=== PATIENT | male | born 1950 | race Caucasian/White ===

== ENCOUNTER 2019-07-05 14:57 | Emergency (ER) | payer MEDICARE ==
--- OUTSIDE RECORDS SUMMARY | 2019-07-05 15:08 | XMS REPORT | Continuity of Care Document ---
:1950 External Reference #:[id number] Author Name Kimberly Sales Address [address] [place] [address] Care Team Providers Name Role Phone Chilango Tobias MD - Interventional Care Team Information [facility] Pain Medicine Mellisa Rodríguez MD - Care Team Information Vertical [facility]orer [phone] Endocrinology, Diabetes & Metabolism Winsome Anderson MD - Cardiovascular Care Team Information [facility]orer Disease Problems Active Problems Provider Date Essential hypertension Kimberly Sales Onset: 03/31/2013 Social History Type Date Description Comments Sex Unknown ETOH Use Occasionally consumes alcohol Recreational Drug Use Denies Drug Use Tobacco Use Start: Unknown End: Patient is a former Unknown smoker Tobacco Use Start: Unknown Patient is a current HE USES THE smoker, smokes every day E-CIGARETTE Smoking Status Reviewed: 06/29/19 Patient is a former smoker Tattoo/Piercing None Allergies, Adverse Reactions, Alerts Description No Known Drug Allergies Medications Active Medications SIG Qnty Indications Ordering Date Provider Paroxetine HCL Take By Mouth One 90tabs Mónica, 06/21/2019 20mg Tablets Tablet Daily Kimberly Olanzapine Take By Mouth One 30tabs Mónica, 05/12/2019 10mg Tablets Tablet Daily Kimberly Baclofen Take By Mouth One 90tabs M54.9 Mónica, 02/23/2019 10mg Tablets Tablet Three Times Kimberly A Day Isosorbide Mononitrate take by mouth one 90tabs Mónica, 02/17/2019 ER tablet daily every Kimberly 30mg Tablets ER 24HR morning Atorvastatin Calcium Take By Mouth One 90tabs Z95.1 Mónica, 2018 10mg Tablet Daily Kimberly Tablets Pramipexole Take By Mouth 1 90tabs G25.81 Mónica, 01/19/2019 Dihydrochloride Tablet Atbedtime Kimberly 0.25mg Tablets Propranolol HCL Take 1 Tablet By 270tabs Mónica, 10/29/2018 10mg Mouth Three Times Kimberly Tablets Daily Duragesic-75 1 every 48 hours 15units Mónica, 04/03/2017 75mcg/HR Kimberly Patches 72HR Imdur take by mouth one 90tabs Mónica, 03/13/2015 30mg Tablets ER 24HR tablet daily every Kimberly morning Latanoprost 1 drop each eye Mónica, 06/22/2014 0.005% Solution every at bedtime Kimberly Altace take by mouth one 90caps Mónica, 11/23/2013 2.5mg Capsules capsuledaily Kimberly Plavix take by mouth one 90tabs Z95.1 Mnóica, 11/23/2013 75mg Tablets tablet daily Kimberly Ventolin HFA 2 puffs q4hr as 1units Mónica, 108(90Base) needed For Kimberly mcg/Act Aerosol Shortness Of Breath Proair HFA Unknown 108(90Base) mcg/Act Aerosol Dextroamphetamine take by mouth one 120tabs F90.0 Mónica, Sulfate tablet four times Kimberly 5mg Tablets a day Spiriva Handihaler Inhale Contents Of 30caps Mónica, 18mcg [address] Kimberly Capsules Handihaler Daily. Immunizations CPT Code Status Date Vaccine Lot # [id number] Given 05/20/2018 Influenza Vacc Seqirus/Afluria Quad, [facility] [id number], .5 ML [id number] Given 03/19/2016 Influenza Vaccine (Fluvirin) 3 Years Of Age Or Older [id number] Given 05/15/2015 Influenza Virus Split 3 Yrs And Above For Intramuscular Use [id number] Given 03/28/2014 Influenza Vaccine (Fluvirin) 3 Years Of Age Or Older 50375 Given 03/28/2014 Pneumococcal Vaccine 23 2Yrs Or Older [id number] Given 04/29/2013 Influenza Vaccine (Fluvirin) 3 Years Of Age Or [id number] Older Vital Signs Date Vital Result Comment 06/29/2019 1:00pm Height 72 inches 6'0" Weight 233.00 lb BP Systolic 134 mmHg BP Diastolic 7 mmHg Heart Rate 60 /min Respiratory Rate 18 /min Pain Level Average Daily 5 Back BMI (Body Mass Index) 31.6 kg/m2 02/23/2019 2:35pm Height 72 inches 6'0" Weight 229.00 lb BP Systolic 130 mmHg BP Diastolic 72 mmHg Heart Rate 80 /min Respiratory Rate 16 /min Pain Level Average Daily 7 BMI (Body Mass Index) 31.1 kg/m2 Results Test Acquired Date Facility Test Result H/L Range Note Laboratory test 06/29/2019 [facility] Lab Hemoglobin A1c <pending> finding Procedures Description No Information Available Medical Devices Description No Information Available Encounters Type Date Location Provider Dx Diagnosis Office Visit 02/23/2019 Main Office Mónica I25.10 Athscl heart 2:45p Kimberly disease of [place] coronary artery w/o ang pctrs F90.0 Attn-defct hyperactivity disorder, predom inattentive type M54.9 Dorsalgia, unspecified I10 Essential (primary) hypertension E21.3 Hyperparathyroidism, unspecified Z83.3 Family history of diabetes mellitus Z68.31 Body mass index (BMI) 31.0-31.9, adult Assessments Date Code Description Provider 06/29/2019 I10 Essential (primary) hypertension Kimberly Sales 06/29/2019 M54.9 Dorsalgia, unspecified Kimberly Sales 06/29/2019 F90.0 Attention-deficit hyperactivity disorder, Kimberly Sales predominantly inat 06/29/2019 I25.10 Atherosclerotic heart disease of [place] Kimberly Sales coronary artery without angina pectoris 06/29/2019 E03.9 Hypothyroidism, unspecified Kimberly Sales 06/29/2019 Z12.11 Encounter for screening for malignant neoplasm Kimberly Madden of colon 06/29/2019 Z68.31 Body mass index (BMI) 31.0-31.9, adult Kimberly Sales 02/23/2019 I25.10 Atherosclerotic heart disease of [place] Kimberly Sales coronary artery without angina pectoris 02/23/2019 F90.0 Attention-deficit hyperactivity disorder, Kimberly Sales predominantly inat 02/23/2019 M54.9 Dorsalgia, unspecified GreyRoseanneKimberly 02/23/2019 I10 Essential (primary) hypertension Mónica Kimberly 02/23/2019 E21.3 Hyperparathyroidism, unspecified EdmondsRoseanne Kimberly 02/23/2019 Z83.3 Family history of diabetes mellitus EdmondsJosepGigiKimberly ash 02/23/2019 Z68.31 Body mass index (BMI) 31.0-31.9, adult Kimberly Sales Plan of Treatment Future Appointment(s):11/02/2019 1:00 pm - Kimberly Sales at Main Bdorxt9710/13/2019 2:15 pm - Kimberly Sales at Main Ydcakw4306/29/2019 - Rita Sales10 Essential (primary) hypertensionComments:LIMIT SALT DWFPHNQ63.9 Dorsalgia, unspecifiedReferral:No Doctor MtyusapwN12.0 Attention- deficit hyperactivity disorder, predominantly inatI25.10 Atherosclerotic heart disease of [place] coronary artery without angina pectorisComments:CONTINUE TO EXERCISE TAKE MEDS RXE03.9 Hypothyroidism, unspecifiedNew Labs:T4 And TSH, Ordered: 06/29/19Z12.11 Encounter for screening for malignant neoplasm of colonNew Labs:Occult Blood - Stool, Ordered: 06/29/19Z68.31 Body mass index (BMI ) 31.0-31.9, adult Functional Status Description No Information Available Mental Status Mental Condition Comment Date Status None Active Referrals Refer to Reason for Referral Status Appt Date PT WILL CALL WITH NAME OF IN [place] FOR BACK Created CHRONIC BACK PAIN Winsome Anderson MD PT IS DUE FOR FU APPT HAS HAD 2 SPELLS OF CP REQ Closed NTG SPOKE WITH OFFICE, THEY ARE CALLING PATIENTS TO SET UP SUSHMA 02/24/[address] [place] [id number] [phone]
[2019-07-05] MEDS ORDERED: NS 0.9% 1000 ML** 1,000 ML BOLUS ONE (15:45)
[2019-07-05 15:58] LABS: Influenza A Molecular NEGATIVE (Negative); Influenza B Molecular NEGATIVE (Negative)
[2019-07-05 16:05] VITALS: BP 97/47
--- NOTE | 2019-07-05 16:07 | UC ---
Respiratory Complaint HPI - HPI Summary HPI Summary: Patient is a 68-year-old male with a history of coronary artery disease and COPD that presents here with a one-day history of productive cough. He states he has dyspnea on exertion at his baseline. For the past day he has been feeling weak and with coughing has felt like he might pass out. He states that he does have some chest pain when he coughs and occasionally when he takes a deep breath. He has felt chilled but has had no fever. - History of Current Complaint Chief Complaint: UCRespiratory Stated Complaint: URI Time Seen by Provider: 07/05/19 15:23 Hx Obtained From: Patient Onset/Duration: Gradual Onset, Lasting Hours Timing: Constant Severity Initially: Mild Severity Currently: Moderate Pain Intensity: 0 Pain Scale Used: 0-10 Numeric Character: Cough: Productive Aggravating Factors: Exertion, Deep Breaths Alleviating Factors: Nothing Associated Signs And Symptoms: Positive: Dyspnea - at baseline, Chills, Nasal Congestion. Negative: Wheezing, Hemoptysis, Dizziness, Calf Pain, Calf Swelling , Edema, URI, Hoarseness, Sinus Discomfort - Allergies/Home Medications Allergies/Adverse Reactions: Allergies Allergy/AdvReac Type Severity Reaction Status Date / Time No Known Allergies Allergy Verified 07/05/19 15:18 PMH/Surg Hx/FS Hx/Imm Hx Previously Healthy: Yes Cardiovascular History: Hypertension Respiratory History: COPD - Surgical History Surgical History: Yes Surgery Procedure, Year, and Place: quadruple bypass, parathyroid surgery, tonsillectomy, appendectomy - Family History Known Family History: Positive: Hypertension - Social History Alcohol Use: Occasionally Alcohol Amount: 1-2 beers every few days Substance Use Type: None Smoking Status (MU): Former Smoker When Did the Patient Quit Smoking/Using Tobacco: 5 yrs Review of Systems All Other Systems Reviewed And Are Negative: Yes Constitutional: Positive: Chills, Fatigue Skin: Positive: Negative Eyes: Positive: Negative ENT: Positive: Sinus Congestion Respiratory: Positive: Shortness Of Breath, Cough Cardiovascular: Positive: Chest Pain - with cough Gastrointestinal: Positive: Negative Genitourinary: Positive: Negative Motor: Positive: Negative Neurovascular: Positive: Negative Musculoskeletal: Positive: Negative Neurological: Positive: Other - grossly non focal, answers questions slowly but appropriatel Psychological: Positive: Negative Physical Exam Triage Information Reviewed: Yes Appearance: Ill-Appearing Vital Signs: Initial Vital Signs Temp 95.8 F 07/05/19 15:10 Pulse 69 07/05/19 15:10 Resp 16 07/05/19 15:10 BP 84/68 07/05/19 15:10 Pulse Ox 96 07/05/19 15:10 Vital Signs Reviewed: Yes Eyes: Positive: Conjunctiva Clear ENT: Negative: Hearing grossly normal - decrease hearing, Nasal congestion, Trismus, Muffled voice Neck: Positive: Supple, Nontender, No Lymphadenopathy Respiratory: Positive: Lungs clear, Normal breath sounds Cardiovascular: Positive: RRR Abdomen Description: Positive: Nontender, No Organomegaly, Soft Bowel Sounds: Positive: Present Musculoskeletal: Positive: ROM Intact, No Edema Neurological: Positive: Fatigued Psychological Exam: Normal Skin Exam: Normal Diagnostics - EKG Cardiac Rate: NL Cardiac Rhythm: Sinus: Normal Ectopy: PACs ST Segment: Normal Summary of EKG Findings: EKG one and two identical. old IWMI with pacs Respiratory Course/Dx - Course Course Of Treatment: During evalution had a brief syncopal episode which lasted about 5 seconds. According to his he briefly shock. By the time I entered the room he had resumed consciousness and was alert and sitting on the gurney. His pulse ox after the episode was in the low 90s and he was placed on 2 L nasal cannula he denies any chest pain. I spoke to Rob one of the PAs in the ER and will send the patient via EMS for further the investigation of his symptoms. An IV was established. His blood sugar was 114 - Differential Dx/Diagnosis Provider Diagnosis: Cough, Syncope Discharge ED - Sign-Out/Discharge Documenting (check all that apply): Patient Departure All imaging exams completed and their final reports reviewed: No Studies - Discharge Plan Condition: Guarded Disposition: TRANS HIGHER LVL OF CARE FAC Referrals: No Primary Care Phys,NOPCP [Primary Care Provider] - - Billing Disposition and Condition Condition: GUARDED Disposition: Trans Higher Lvl of Care Fac
== END 2019-07-05 16:15 | disposition short-term general hospital (02) ==
LOC: UCEAST 14:57
DX: R05 Cough (principal); R55 Syncope and collapse; I10 Essential (primary) hypertension; J44.9 Chronic obstructive pulmonary disease, unspecified; I25.10 Atherosclerotic heart disease of native coronary artery without angina pectoris; Z87.891 Personal history of nicotine dependence
CPT/HCPCS: 93005; 96360; 99213; G0463

== ENCOUNTER → 2019-07-05 16:47 | Emergency (ER) | payer MEDICARE, MEDICAID ==
[~2019-07-05 16:47] MED LIST: Levofloxacin 750 MG IVPREMIX(* 750 MG/150 ML BAG IVPB ONE
--- NOTE | 2019-07-05 17:08 | ED ---
Syncope/Near Syncope - HPI Summary HPI Summary: The patient is a 68 y/o M arriving by ambulance to [facility] from [facility] with a chief complaint of syncopal episode this afternoon. He reports he was [facility] for URI symptoms including a cough for the last two days. He uses Fentanyl patches chronically, and he had an old one on which he keeps on for one day while the new one he places on takes effect. Today, he had both the old and new patches on , and while at [facility], he had a syncopal event where he was hypotensive. The old Fentanyl patch was removed, and he was given a liter of fluids. Per , he was sitting when he became limp and unresponsive with shaking of the arms lasting for approximately 30 seconds. The patient does not remember the event, but he states that he "felt like he was going to a peaceful place." He has a history of COPD and uses an inhaler, but he does not use O2 at home. He endorses increased SOB. He is not in any pain. PMHx: CAD with quadruple bypass. Current e-cigarette smoker, occasional EtOH, no substance use. Medications reviewed. Allergies noted. - History Of Current Complaint Time Seen by Provider: 07/05/19 16:59 Hx Obtained From: Patient, Family/Customer Assistant - Onset/Duration: Lasting Minutes, Resolved Timing: Seconds Context: Witnessed Activity At Onset: At Rest Associated Head Trauma: No Aggravating Factor(s): Nothing Alleviating Factor(s): Spontaneous Resolution Associated Signs And Symptoms: Shortness Of Breath, Other - cough - Allergies/Home Medications Allergies/Adverse Reactions: Allergies Allergy/AdvReac Type Severity Reaction Status Date / Time No Known Allergies Allergy Verified 07/05/19 15:18 Home Medications: Home Medications Budesonide/Formote 160/4.5(NF) [Symbicort 160/4.5 (NF)] 2 puff INH DAILY [History Confirmed 07/05/19] Dextroamphetamine (NF) TAB [Dexedrine TAB*] 5 mg PO QID 07/05/19 [History Confirmed 07/05/19] Propranolol TAB* [Inderal TAB*] 10 mg PO TID 07/05/19 [History Confirmed ] PMH/Surg Hx/FS Hx/Imm Hx Endocrine/Hematology History: Denies: Hx Diabetes Cardiovascular History: Reports: Hx Coronary Artery Disease Respiratory History: Reports: Hx Chronic Obstructive Pulmonary Disease (COPD) - Surgical History Surgical History: Yes Surgery Procedure, Year, and Place: quadruple bypass, parathyroid surgery, tonsillectomy, appendectomy Infectious Disease History: Reports: Hx Shingles Denies: Traveled Outside the [place] in Last 30 Days - Family History Known Family History: Positive: Hypertension - Social History Alcohol Use: Occasionally Alcohol Amount: 1-2 beers every few days Hx Substance Use: No Substance Use Type: Reports: None Hx Tobacco Use: Yes - quit cigarettes in 2013 Smoking Status (MU): Current Every Day Smoker Type: eCigarettes Review of Systems Positive: Shortness Of Breath, Cough Positive: Syncope - with LOC and decreased responsiveness All Other Systems Reviewed And Are Negative: Yes Physical Exam - Summary Physical Exam Summary: Appearance: The patient is well-nourished in no acute distress and in no acute pain. Skin: The skin is warm and dry, and skin color reflects adequate perfusion. HEENT: The head is normocephalic and atraumatic. The pupils are equal and reactive. The conjunctivae are clear and without drainage. Nares are patent and without drainage. Mouth reveals moist mucous membranes, and the throat is without erythema and exudate. The external ears are intact. The ear canals are patent and without drainage. The tympanic membranes are intact. Neck: The neck is supple with full range of motion and non-tender. There are no carotid bruits. There is no neck vein distension. Respiratory: Chest is non-tender. Lungs are clear to auscultation and breath sounds are symmetrical and equal. The patient has a midline sternotomy that is well-healed. Cardiovascular: Heart is regular rate and rhythm. There is no murmur or rub auscultated. There is no peripheral edema and pulses are symmetrical and equal. Abdomen: The abdomen is soft and non-tender. There are normal bowel sounds heard in all four quadrants and there is no organomegaly palpated. Musculoskeletal: There is no back tenderness noted. Extremities are non-tender with full range of motion. There is good capillary refill. There is no peripheral edema or calf tenderness elicited. Neurological: Patient is alert and oriented to person, place and time. The patient has symmetrical motor strength in all four extremities. Cranial nerves are grossly intact. Deep tendon reflexes are symmetrical and equal in all four extremities. Psychiatric: The patient has an appropriate affect and does not exhibit any anxiety or depression. Triage Information Reviewed: Yes Vital Signs Reviewed: Yes Procedures - Sedation Patient Received Moderate/Deep Sedation with Procedure: No Diagnostics - Laboratory Result Diagrams: 07/05/19 17:29 07/05/19 17:29 Lab Statement: Any lab studies that have been ordered have been reviewed, and results considered in the medical decision making process. - Radiology CXR Radiology Interpretation Completed By: Radiologist Summary of Radiographic Findings: Impression: Mild bibasilar atelectasis versus infiltrate. ED physician has reviewed this imaging report. - EKG 1706 Cardiac Rate: NL - 74 bpm EKG Rhythm: Sinus Rhythm Summary of EKG Findings: An EKG at 1706 reveals normal sinus rhythm at 74 bpm, APCs, no STEMI. ED physician has reviewed and interpreted this EKG. Re-Evaluation - Re-Evaluation First Eval Re-Evaluation Time: 20:00 Comment: We discussed all results and plan for admission. Patient will decide if he wants to stay. Second Eval Re-Evaluation Time: 21:20 Change: Improved Comment: Patient is able to ambulate. He feels safe going home after antibiotics. Course/Dx Course Of Treatment: Mr. Honorio Dangeloise a syncopal episode at the [facility] care today. He went to the convenient care because of a cough and in his workup in the emergency department the radiologist felt that he was likely to have an infiltrate on his chest x-ray. He was given Levaquin here in the emergency department for that. I had recommended to the patient that he be admitted for observation secondary to the sudden, no-warning syncopal event. He refused to stay in the hospital even though we discussed the possibility that this could be a cardiac event and could occur again leading to permanent disability or . - Diagnoses Provider Diagnoses: Syncope, PNA (pneumonia) - Physician Notifications Discussed Care of Patient With: Clyde Moseley - hospitalist Time Discussed With Above Provider: 19:50 Instructed by Provider To: Other - I discussed the patient's case with Dr. Moseley , and he accepts the patient for admission. Discharge ED - Sign-Out/Discharge Documenting (check all that apply): Patient Departure - Patient will be discharged home. - Discharge Plan Condition: Stable Disposition: HOME Prescriptions: Levofloxacin TAB* [Levaquin TAB*] 750 mg PO DAILY #10 tab Patient Education Materials: Pneumonia (ED) Referrals: Care [facility] [Outside] - 3 Days Additional Instructions: Follow up with your primary care provider in 2-3 days. Return to the emergency department for any new or worsening symptoms. - Billing Disposition and Condition Condition: STABLE Disposition: Home - Attestation Statements Document Initiated by Cintiaibe: Yes Documenting Scribe: Leona Huggins Provider For Whom Kayode is Documenting (Include Credential): Dr. Chiki Nazario MD Scribe Attestation: Leona Norris scribed for Dr. Chiki Nazario MD on 07/05/19 at 2125. Scribe Documentation Reviewed: Yes Provider Attestation: The documentation as recorded by the Leona godinez accurately reflects the service I personally performed and the decisions made by me, Dr. Chiki Nazario MD Status of Scribe Document: Viewed
[2019-07-05 17:46] LABS: ABS Monocytes 0.9 10^3/ul (0-0.8); ABS Neutrophils 4.8 10^3/ul (1.5-7.7); Hematocrit 39 % (42-52); Hemoglobin 13.6 g/dL (14.0-18.0); Lymphocyte % 14.8 %; Mean Corpuscular HGB Conc 35 g/dL (31-36); Mean Corpuscular Hemoglobin 34 pg (27-31); Mean Corpuscular Volume 98 fL (80-94); Mean Platelet Volume 7.8 fL (7.4-10.4); Platelet Count 166 10^3/uL (150-450); Red Blood Count 3.99 10^6 /uL (4.18-5.48); Red Cell Distribution Width 13 % (10-15); White Blood Count 6.7 10^3/uL (3.5-10.8)
[2019-07-05 18:05] LABS: Troponin I 0.01 ng/mL (<0.03)
[2019-07-05 18:06] LABS: ALT 19 U/L (7-52); AST 28 U/L (13-39); Albumin 3.7 g/dL (3.2-5.2); Albumin/Globulin Ratio 1.4 (1-3); Alkaline Phosphatase 66 U/L (34-104); Anion Gap 6 mmol/L (2-11); BUN/Creatinine Ratio 11.6 (8-20); Blood Urea Nitrogen 11 mg/dL (6-24); CO2 Carbon Dioxide 27 mmol/L (22-32); Calcium 8.3 mg/dL (8.6-10.3); Chloride 95 mmol/L (101-111); EGFR African American 94.8 (>60); EGFR Non-African American 78.4 (>60); Globulin 2.6 g/dL (2-4); Glucose 107 mg/dL (70-100); Magnesium 1.6 mg/dL (1.9-2.7); Potassium 3.8 mmol/L (3.5-5.0); Sodium 128 mmol/L (135-145); Total Protein 6.3 g/dL (6.4-8.9)
[2019-07-05 18:11] LABS: Alcohol < 10 mg/dL (<10)
[2019-07-05 18:30] LABS: INR 1.23 (0.82-1.09)
[2019-07-05 20:10] LABS: Urine Appearance Clear; Urine Bilirubin Negative (Negative); Urine Blood Negative (Negative); Urine Color Yellow; Urine Glucose Negative (Negative); Urine Ketones Trace (Negative); Urine Nitrite Negative (Negative); Urine Protein Negative (Negative); Urine Urobilinogen Negative (Negative)
[2019-07-05 20:43] LABS: Influenza A Molecular NEGATIVE (Negative); Influenza B Molecular NEGATIVE (Negative)
[2019-07-05 21:06] VITALS: BP 112/66
== END | disposition home or self-care (01) ==
LOC: ED 16:47
DX: R55 Syncope and collapse (principal); J18.9 Pneumonia, unspecified organism; R06.02 Shortness of breath; J44.9 Chronic obstructive pulmonary disease, unspecified; I25.10 Atherosclerotic heart disease of native coronary artery without angina pectoris; Z95.1 Presence of aortocoronary bypass graft; F17.290 Nicotine dependence, other tobacco product, uncomplicated; I10 Essential (primary) hypertension; Z79.891 Long term (current) use of opiate analgesic
CPT/HCPCS: 36415; 71045; 80053; 80320; 81003; 83605; 83735; 84443; 84484; 85025; 85379; 85610; 93005; 96365; 96366; 99284; G0480

== ENCOUNTER 2022-06-24 14:09 | Observation (INO) ==
[2022-06-24 14:29] LABS: ABS Eosinophils 0.1 10^3/ul (0-0.6); ABS Lymphocytes 1.3 10^3/ul (1.0-4.8); ABS Monocytes 0.5 10^3/ul (0-0.8); ABS Neutrophils 3.8 10^3/ul (1.5-7.7); Hematocrit 41 % (42-52); Hemoglobin 13.2 g/dL (14.0-18.0); Lymphocyte % 22.6 %; Mean Corpuscular HGB Conc 32 g/dL (31-36); Mean Corpuscular Hemoglobin 32 pg (27-31); Mean Corpuscular Volume 100 fL (80-94); Mean Platelet Volume 7.6 fL (7.4-10.4); Platelet Count 238 10^3/uL (150-450); Red Cell Distribution Width 13 % (10-15); White Blood Count 5.7 10^3/uL (3.5-10.8)
[2022-06-24 14:45] LABS: INR 1.02 (0.89-1.11)
[2022-06-24 15:22] LABS: Albumin 4.2 g/dL (3.2-5.2); Albumin/Globulin Ratio 1.8 (1-3); Calcium 9.9 mg/dL (8.6-10.3); Globulin 2.4 g/dL (2-4); Potassium 4.5 mmol/L (3.5-5.0); Total Bilirubin 0.8 mg/dL (0.2-1.0); Total Protein 6.6 g/dL (6.4-8.9); eGFR CKD-EPI 85.6 (>60)
[2022-06-24 16:16] LABS: High Sensitivity Troponin 1 Hr 5 pg/mL (<20)
[2022-06-24] MEDS ORDERED: Albuterol HFA INHALER 8 gm MDI INH PRN (19:52)
[2022-06-24] MEDS ORDERED: Enoxaparin 40 MG/0.4 ML SYR SUBCUT SCH (21:00)
[2022-06-24] MEDS ORDERED: Latanoprost 0.005% 2.5 ml BTL BOTH EYES SCH (21:00)
[2022-06-24] MEDS ORDERED: DEXTROAMPHETAMINE 5 MG PO SCH (21:00)
[2022-06-24] MEDS: Magnesium Hydroxide LIQ 30 ML UDC PO SCH (21:43)
[2022-06-24 22:32] LABS: HDL Cholesterol 48.8 mg/dL
[2022-06-24 22:48] LABS: TSH Ultra Thyroid Stim Horm 1.53 mcIU/mL (0.34-5.60)
[2022-06-25 06:14] LABS: Calcium 9.1 mg/dL (8.6-10.3); Magnesium 1.8 mg/dL (1.9-2.7); eGFR CKD-EPI 96.9 (>60)
[2022-06-25] MEDS ORDERED: fentaNYL Patch Check Q Shift NOTE FOLLOW UP SCH (07:00)
[2022-06-25 07:04] LABS: ABS Eosinophils 0.1 10^3/ul (0-0.6); ABS Lymphocytes 1.4 10^3/ul (1.0-4.8); ABS Monocytes 0.5 10^3/ul (0-0.8); ABS Neutrophils 3.9 10^3/ul (1.5-7.7); Eosinophil % 1.9 %; Hematocrit 37 % (42-52); Hemoglobin 12.2 g/dL (14.0-18.0); Lymphocyte % 23.8 %; Mean Corpuscular HGB Conc 33 g/dL (31-36); Mean Corpuscular Hemoglobin 33 pg (27-31); Mean Corpuscular Volume 100 fL (80-94); Mean Platelet Volume 8.5 fL (7.4-10.4); Platelet Count 187 10^3/uL (150-450); Red Blood Count 3.68 10^6 /uL (4.18-5.48); Red Cell Distribution Width 13 % (10-15)
[2022-06-25] MEDS ORDERED: Aminophylline 25 MG/ML VIAL ONE (07:54)
[2022-06-25] MEDS ORDERED: Regadenoson 0.4 MG/5 ML SYRINGE ONE (07:54)
[2022-06-25] MEDS ORDERED: Magnesium Sulfate 2 gm BAG 2 GM/50 ML BAG IVPB ONE (08:30)
[2022-06-25] MEDS ORDERED: fentaNYL PATCH 75 MCG/HR 1 PATCH TRANSDERM SCH (09:00)
[2022-06-25] MEDS ORDERED: Psyllium PAK PO SCH (09:00)
[2022-06-25] MEDS: Magnesium Hydroxide LIQ 30 ML UDC PO SCH (10:06)
[2022-06-25 18:14] VITALS: BP 108/56
== END 2022-06-25 17:56 | disposition home or self-care (01) ==
LOC: EDHOLD 14:09 → ED 14:09 → SUATTDRO 19:40 → MEDTELE 22:31
PROVIDERS: ADMIT Internal Medicine; ATTEND Family Medicine